=== PATIENT | female | born 1980 | race American Indian/Alaskan Native ===

== ENCOUNTER 2017-04-04 06:37 | Day surgery (SDC) | payer OTHER ==
[2017-03-28 10:48] VITALS: BMI 32.8
[2017-04-04] MEDS ORDERED: Bupivacaine 0.5% Inj(30mL) ONE (07:21)
[2017-04-04] MEDS ORDERED: ceFAZolin IV 1 gm in Dextrose 1 GM/50 ML BAG IVPB ONE (07:21)
[2017-04-04] MEDS ORDERED: Lidocaine 2% Inj (20ml) ONE (07:21)
[2017-04-04] MEDS ORDERED: ceFAZolin IV 2 gm in Dextrose 0 GM/0 ML BAG IVPB ONE (07:30)
[2017-04-04] MEDS ORDERED: Sodium Chloride 0.9% 500 ML IV ONE (07:40)
[2017-04-04] MEDS ORDERED: Propofol 10 mg/ml Inj (20 ML) ONE ×3 (07:41→08:03)
[2017-04-04] MEDS ORDERED: Midazolam 2 MG/2 ML VIAL ONE ×2 (07:41→08:02)
[2017-04-04] MEDS ORDERED: ePHEDrine 50 mg/ml Inj ONE (07:57)
[2017-04-04] MEDS ORDERED: HYDROmorphone 0.5 mg/0.5 ml ISec IVP PRN (08:34)
--- NOTE | 2017-04-04 08:48 | PCM.SURG1 ---
Surgeon's Initial Post Op Note - Surgeon's Notes Surgeon: Dr. Mejia, DPM Dinner Cook: Dr. Katy Abarca, PGY1 Type of Anesthesia: IV Sedation, Local (19 cc's of 1:1 0.5% Marciane plain to lidocaine plain) Anesthesia Administered By: Dr. Mc Pre-Operative Diagnosis: Left foot keratotic nodule w/ plantar cyst. Operative Findings: See dictation. Materials: 3-0 vicryl, 4-0 prolene Post-Operative Diagnosis: Left foot soft tisse mass w/ overlying keratosis. Operation Performed: 1) Left foot plantar soft sissue mass. 2) Complex closure w/ rotational skinplasty Specimen/Specimens Removed: 1) Hyperkeratinized skin. 2) Soft tisse mass Estimated Blood Loss: EBL {In ML}: 1 Blood Products Given: N/A Drains Used: No Drains Post-Op Condition: Good Date of Surgery/Procedure: 04/04/17 Time of Surgery/Procedure: 08:52
[2017-04-04] MEDS ORDERED: Oxycodone/Acetaminophen 5/325 mg Tab PO PRN ×2 (08:53)
[2017-04-04 08:56] VITALS: O2SAT 100
--- NOTE | 2017-04-04 10:33 | OP ---
PROCEDURE DATE: 04/04/2017 SURGEON: Dr. Hollis Mejia, DPM PICK UP: Dr. Elda Abarca, PGY1 ANESTHESIOLOGIST: Dr. Mc. ANESTHESIA: IV sedation with local. PREOPERATIVE DIAGNOSES: Left foot plantar keratotic nodule with potential soft tissue mass. POSTOPERATIVE DIAGNOSES: Soft tissue mass with overlying hyperkeratosis. PROCEDURE PERFORMED: 1. Left foot removal of plantar soft tissue mass. 2. Complex skin closure; rotational skinplasty. INDICATIONS: The patient is a 36-year-old female with the above stated diagnoses. The patient has exhausted all conservative treatment options at this time and is now in need of surgical intervention. The patient signed the consent after careful explanation of risks, benefits and complications. No guarantees were neither given nor implied. PREPARATION: The patient was wheeled into the operating room and placed on the operating room table in a supine position. IV sedation was started, once patient fully sedated, the left foot received a total of 19 mL of a 1:1 mixture of 0.5% Marcaine plain to 2% lidocaine plain in a local block type fashion to the left foot. Once anesthesia was confirmed to have been fully achieved, the left foot was then prepped and draped in the usual sterile manner and the procedure began. DESCRIPTION OF PROCEDURE: The attending was present during the entire case. Attention was then directed to the plantar aspect of the left foot where a hyperkeratotic nodule was noted with the surface area measuring 2 cm x 1.5 cm. At this time, a circumferential incision with a distal based arm was created to allow for adequate soft tissue coverage in surgical procedure due to complex location of nodule. At this time, an incision was made down through the skin and dermal tissue using a #15 blade. The incision was extended down to subcutaneous tissues using #15 blade and a Bovie was used to cauterize any excess bleeders with care taken to avoid any and all neurovascular structures. At this time, the cored nidus area was removed from the operative field after being freed from subcutaneous soft tissue attachments. Once removed, a soft tissue mass was visually appreciated. Mass was freely movable with a deep stalk. Using curved Metzenbaum scissors, soft tissue mass was freed of its circumferentially and deep soft tissue attachments and freed from its base and passed from the operative field for pathology assesesment. Both specimens removed from the operative field were sent to laboratory for evaluation. Attention was then redirected to the plantar soft tissue deficit, which was then flushed with copious amounts of sterile saline. Extension of distal arm of incision was needed to allow for adequate rotation of flap to allow for proper soft tissue coverage. At this time, subcutaneous tissue layers medially and laterally were reapproximated using 3-0 Vicryl. Skin was reapproximated using 4-0 Prolene. Surgical site was dressed with Xeroform, 4 x 4 gauze, Kerlix , and an Manjeet bandage. POSTOPERATIVE CONDITION: The patient tolerated the pain and anesthesia well and was escorted to the PACU with vital signs stable and neurovascular status intact to the left foot. The patient will follow up with Dr. Mejia within 1 week for postoperative check. Elda Abarca DPM Hollis Mejia DPM cc: [id number] TT: 04/04/2017 10:32:40 cory HARRISON
[2017-04-04 11:36] VITALS: BP 93/52; PULSE 69; RESP 16; TEMP 98.1
== END 2017-04-04 11:11 | disposition home or self-care (01) ==
LOC: C.SDS 06:37
PROVIDERS: ATTEND Podiatrist Foot & Ankle Surgery
DX: L72.0 Epidermal cyst (principal)
CPT/HCPCS: 11423; 88305; J0131; J0690; J1885; J2001; J2250; J2405; J2704; J3010; J7040

== ENCOUNTER 2018-06-17 06:56 | Day surgery (SDC) | payer MEDICAID, OTHER ==
[2018-06-17 07:44] VITALS: BMI 31.8
[2018-06-17 07:55] VITALS: O2SAT 100
[2018-06-17] MEDS ORDERED: Midazolam 2 MG/2 ML VIAL ONE (08:36)
[2018-06-17] MEDS ORDERED: Propofol 10 mg/ml Inj (20 ML) ONE ×2 (08:36→09:03)
[2018-06-17] MEDS ORDERED: Lactated Ringer's 1,000 ML IV ONE (09:18)
[2018-06-17] MEDS ORDERED: HYDROmorphone 0.5 mg/0.5 ml ISec IVP PRN (09:19)
[2018-06-17 11:25] VITALS: BP 106/63; PULSE 63; RESP 18; TEMP 97
--- NOTE | 2018-06-18 08:33 | OP ---
Copied To: Regan Stein MD Attending MD: Regan Stein MD PROCEDURE DATE: 06/17/2018 PREOPERATIVE DIAGNOSIS: A 37-year-old 1, para 0 with menorrhagia and endometrial polyp. POSTOPERATIVE DIAGNOSIS: A 37-year-old 1, para 0 with menorrhagia and endometrial polyp. SURGEON: Regan Stein MD FAX MACHINE OPERATOR: None. ANESTHESIA: General. ANESTHESIOLOGIST: Dr. Victoria. PROCEDURES: MyoSure, dilatation and curettage, . COMPLICATIONS: None. ESTIMATED BLOOD LOSS: 20 mL. DEFICIT: 175. DESCRIPTION OF PROCEDURE: The patient was brought to the operating room, placed on the table, where general anesthesia was given. Once the anesthesia was found to be sufficient, the patient was prepped and draped in the normal sterile fashion. Examination of uterus showed it to be . Anterior lip of the cervix was grasped with a tenaculum. Gentle dilatation of the cervix was performed. It was found that there was a polyp on the posterior wall of the uterus. Picture was taken, and the decision was made to use the MyoSure. MyoSure was introduced, and the polyp was removed. After that, sharp curettage of all the huggins of the uterus was done and ECC was sent to the Pathology, and then after that, tenaculum was taken out. The patient tolerated the procedure well. Lap, sponge, and instrument counts were correct x2. Regan Stein MD
== END 2018-06-17 11:46 | disposition home or self-care (01) ==
LOC: C.SDS 06:56
PROVIDERS: ATTEND Obstetrics & Gynecology
DX: N84.0 Polyp of corpus uteri (principal); N92.0 Excessive and frequent menstruation with regular cycle
CPT/HCPCS: 58558; 88305; J1170; J2250; J2704; J3010; J7120